=== PATIENT | male | born 1990 | race Caucasian/White ===

== ENCOUNTER 2024-09-25 11:57 | Emergency (ER) | payer OTHER, SELFPAY ==
--- OUTSIDE RECORDS SUMMARY | 2024-09-25 11:59 | XMS_ITS | Clinical Summary ---
Author Organization 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 Gender Identity Not on file Sexual Orientation Not on file Plan of Treatment Health Maintenance Due Date Last Done Comments Hepatitis C Virus (HCV) Screening 1991 Human Papillomavirus (HPV) Immunization (1 - Male 3-dose series) 09/22/2006 Hepatitis B Immunization (1 of 3 - 19+ 3-dose series) 09/22/2010 SARS-COV-2 Immunization ( - 2023- season) 2023 Influenza Immunization (#1) 2024 Respiratory Syncytial Virus (RSV) Immunization (Adult) (1 - 1-dose 75+ series) 09/22/2066 DTaP/Tdap/Td Immunization Discontinued 07/31/2018 TdaP Immunization Completed 07/31/2018 Meningococcal Immunization (ACWY) Aged Out No longer eligible based on patient's age to complete this topic Pneumococcal Immunization Combined Aged Out No longer eligible based on patient's age to complete this topic Rotavirus Immunization Aged Out No lo nger eligible based on patient's age to complete this topic
--- OUTSIDE RECORDS SUMMARY | 2024-09-25 11:59 | XMS_ITS | Clinical Summary ---
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 This disclosure is being madepursuant to the Care Everywhere program and may not contain all information available regarding this patient. 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 Gender Identity Not on file Sexual Orientation Not on file Last Filed Vital Signs Vital Sign Reading Time Taken Comments Blood Pressure 134/78 12/27/2012 5:48 AM CDT Pulse 98 12/27/2012 5:48 AM CDT Temperature 37.1 C (98.7 F) 12/27/2012 2:09 AM CDT Respiratory Rate 18 12/27/2012 5:48 AM CDT Oxygen Saturation 99% 12/27/2012 5:48 AM CDT Inhaled Oxygen Concentration - - Weight 81.6 kg (180 lb) 12/27/2012 2:09 AM CDT Height 182.9 cm (6') 12/27/2012 2:09 AM CDT Body Mass Index 24.41 12/27/2012 2:09 AM CDT Plan of Treatment Health Maintenance Due Date Last Done Comments HIV SCREENING 09/22/2006 HEPATITIS C SCREENING 09/18/2009 DTAP/TDAP/TD VACCINES (1 - Tdap) 09/22/2010 HEPATITIS B VACCINE (1 of 3 - 19+ 3-dose series) 09/22/2010 HPV VACCINE (1 - 3-dose SCDM series) 09/22/2018 COVID-19 VACCINE (1 - 2024-2 5 season) 2023 DEPRESSION SCREENING 02/27/2024 INFLUENZA VACCINE (#1) 2024 ZOSTER VACCINE (1 of 2) 09/22/2041 HIB VACCINE Aged Out No longer eligi ble based on patient's age to complete this topic MENINGOCOCCAL (Group B) VACC INE SHARED DECISION-MAKING Aged Out No longer eligibl e based on patient's age to complete this topic MENINGOCOCCAL GROUPS A/C/Y/W VACCINE Aged Out No longer eligible b ased on patient's age to complete this topic PNEUMOCOCCAL VACCINE Aged Out No long er eligible based on patient's age to complete this topic
--- OUTSIDE RECORDS SUMMARY | 2024-09-25 12:04 | XMS_ITS | Clinical Summary ---
Author Organization [facility] Address [address] [place] [id number] Care Team Providers Care Fur Blender Name Role Phone None, Provider MD Primary Care Provider Unavaila ble Allergies Active Allergy Reactions Criticality Noted Date Comments Amoxicillin Rash Low 08/25/2023 Medications fluticasone propionate (FLONASE) 50 MCG/ACT nasal sprayIndication s:Post-nasal drainage 1 spray by Each Nostril route daily. 09/03/2023 Active methylPREDNISol one, NIA, (MEDROL DOSEPAK) 4 MG tabletIndicatio ns:Bronchitis 6 TABLETS ON DAY ONE, 5 TABLETS DAY TWO, 4 TABLETS DAY THREE, 3 TABLETS DAY FOUR, 2 TABLETS DAY FIVE, AND 1 TABLET DAY SIX 1 each 09/03/2023 Active Active Problems No known active problems Immunizations Immunization Administration Dates Next Due Influenza Adult (Generic) 12/02/2021 Tdap (Boostrix) 07/31/2018 Family History Medical History Relation Comments None Father None Mother Relation Status Comments Father Mother Social History Tobacco Use Types Packs/Day Years Used Date Smoking Tobacco: Former Cigarettes Smokeless Tobacco: Never Tobacco Cessation:Counseling Given: Not Answered Alcohol Use Standard Drinks/Week Comments Yes 0 (1 standard drink = 0.6 oz pur e alcohol) PHQ-2 Answer Date Recorded Patient Health Questionnaire-2 Score 0 06/07/2022 Sex and Gender Information Value Date Recorded Sex Assigned at Not on file Legal Sex Male 5:38 PM CDT Gender Identity Not on file Sexual Orientation Not on file Last Filed Vital Signs Vital Sign Reading Time Taken Comments Blood Pressure 148/91 09/03/2023 1:48 PM CDT Pulse 81 09/03/2023 1:27 PM CDT Temperature 36.7 C (98 F) 09/03/2023 1:27 PM CDT Respiratory Rate 18 09/03/2023 1:27 PM CDT Oxygen Saturation 98% 09/03/2023 1:27 PM CDT Inhaled Oxygen Concentration - - Weight 89.2 kg (196 lb 9.6 oz) 09/03/2023 1:27 P M CDT Height 182.9 cm (6') 09/03/2023 1:27 PM CDT Body Mass Index 26.66 09/03/2023 1:27 PM CDT Plan of Treatment Health Maintenance Due Date Last Done Comments Annual Physical 09/22/1994 Hepatitis C 09/22/2009 Hepatitis B Vaccines (1 of 3 - 19+ 3-dose series) 09/22/2010 HPV Vaccines (1 - 3-dose SCD M series) 09/22/2018 COVID-19 Vaccine (3 - 2023-2 5 season) 2023 12/02/2021, 06/06/2020 PHQ-2 (Physician [place]) 02/27/2024 DTaP, Tdap and Td Vaccines ( 2 - Td or Tdap) 07/31/2028 07/31/2018 Meningococcal B Vaccine Aged Out No l onger eligible based on patient's age to complete this topic Meningococcal Vaccine Aged Out No macario alma eligible based on patient's age to complete this topic Pneumococcal Vaccine: Pediatrics (0 to 5 Years) and At-Risk Patients (6 to 49 Years) Aged Out No longer eligible b ased on patient's age to complete this topic RSV Immunizations Under 20 Months Aged Out No longer eligible b ased on patient's age to complete this topic Insurance [employer] Care Teams Fur Blender Relationship Specialty Start Date End Date None, Provider, PCP - General 07/29/18
[2024-09-25 12:07] VITALS: BP 157/97; PULSE 87; RESP 18; TEMP 36.6; O2SAT 100
--- NOTE | 2024-09-25 13:04 | ED_ITS ---
HPI - Extremity Problem General Chief complaint: Extremity Injury, Upper Stated complaint: RT Elbow Pain Time Seen by Provider: 09/25/24 13:04 Source: patient, RN notes reviewed and old records reviewed Mode of arrival: ambulatory Limitations: no limitations History of Present Illness HPI Narrative: 34-year-old male presents to the [facility] with right elbow pain and swelling since yesterday. Denies any injury. States 2 days ago was doing more stressful work on his elbow than he normally does. Swelling and tenderness noted to the posterior right elbow, olecranon area. Does have full range of motion. Related Data Home Medications ?Medication ?Instructions ?Recorded ?Confirmed ?Last Taken ?Type No Home Medications 09/25/24 09/25/24 Unknown History Allergies Allergy/AdvReac Type Severity Reaction Status Date / Time amoxicillin Allergy Mild Rash Verified 09/25/24 13:06 Review of Systems Review of Systems: All systems reviewed & are unremarkable except as noted in HPI and below Constitutional: Constitutional: Reports no additional constitutional complaints Musculoskeletal: Musculoskeletal: Reports as per HPI, Reports arthralgias, Reports joint swelling (Right elbow), Denies limited range of motion and Denies muscle weakness Integumentary/Breasts: Skin/Breast: Reports system reviewed and no additional complaints, except as docu PMFSH Comments At the time of my signature, I reviewed and agree with the nursing past medical, surgical, social, and family history. There is no relevant family history pertinent to the patient complaint. Exam Const: General: cooperative, healthy appearing, comfortable, no acute distress, well developed, alert and well nourished Nutritional Appearance: well nourished Orientation/consciousness: patient oriented x3 Limitations: no limitations HENMT: Head: normal to inspection Eyes: General: appearance normal, both eyes and all related structures Alignment and Position: alignment normal Neck: Neck: normal visual inspection, full ROM, no lymphadenopathy and no meningeal signs Chest: Chest palpation & inspection: normal inspection of the chest Resp: Effort & Inspection: normal respiratory effort and able to speak in complete sentences Cardio: Rate: regular rate Skin: General skin exam: normal color and no rashes or lesions noted Neuro: General: patient oriented x3, gait normal, moves all extremities and no meningeal signs Cognition (Neuro): normal cognition Speech: normal speech Gait exam (Neuro): Normal gait present Extrem: General: normal to inspection, full ROM, capillary refill normal and normal gait Right upper extremity: elbow/forearm tenderness, swelling of the olecranon, normal ROM, warmth of the olecranon bursa and distal pulses intact; no lacerations, no ecchymosis, no penetrating wound and no deformity, wrist normal to inspection and normal ROM and Extremity exam: right hand normal to inspection and normal capillary refill Psych: Appearance: grossly normal and well kempt Mental Status: mental status grossly normal Speech and movement: Normal speech and movement present and Clear speech present Affect: normal affect Attitude: cooperative Course Course Level of Care: Express Care Visit Vital Signs Vital signs: Vital Signs Temperature 97.9 F 09/25/24 12:07 Pulse Rate 87 09/25/24 12:07 Respiratory Rate 18 09/25/24 12:07 Blood Pressure 157/97 H 09/25/24 12:07 Pulse Oximetry 100 09/25/24 12:07 Oxygen Delivery Room Air 09/25/24 12:07 Temperature 97.9 F 09/25/24 12:07 Pulse Rate 87 09/25/24 12:07 Respiratory Rate 18 09/25/24 12:07 Blood Pressure 157/97 H 09/25/24 12:07 Pulse Oximetry 100 09/25/24 12:07 Oxygen Delivery Room Air 09/25/24 12:07 Reviewed MDM - Extremity (Nontraumatic) MDM Narrative Medical decision making narrative: Patient sitting in exam room. Patient is nontoxic, vitals stable. Patient presents with swelling posterior right elbow consistent with olecranon bursitis. Discussed doing an x-ray which is not needed due to no injury. Discussed treatment of the olecranon bursitis, referral to Ortho given Stressed the importance of following up with primary care provider for further evaluation if symptoms do not improve Patient is appropriate for outpatient treatment with close follow-up Discharge instructions reviewed with patient, as well as provided in writing per nursing staff. The instructions also include specific and strict return/GO TO THE ER as well as f/u information. All questions have been answered, and the patient deny any further questions with discharge and discharge plan. Some parts of this dictation were generated by voice recognition software and may contain typographical and/or grammatical inaccuracies. Differential Diagnosis Differential diagnosis: Likely gout, cellulitis and other (Bursitis) Critical Care Time Critical Care Time Critical Care Time: No Discharge Plan Discharge Clinical Impression: Olecranon bursitis of right elbow Patient Disposition: Home Condition: Stable Instructions: Antibiotic Form, Elbow Bursitis (ED) Additional Instructions: Rest, ice and elevate every 2-3 hours for 15-20 minutes while awake. Wear an Shane wrap or a pull-on compression sleeve Take the indomethacin as prescribed Follow-up with Ortho or primary care provider If you are having a hard time finding a physician please call our [facility] liaison at [phone]. For new or worsening symptoms go directly to the emergency room Patient Language: Faroese Prescriptions: New indomethacin 50 mg capsule 50 mg PO TID Qty: 20 0RF Rx Instructions: administer with food or milk No Action No Home Medications Follow-up/Referrals: PHYSICIAN,AIRBRUSH ARTIST [Primary Care Provider] - John Urrutia MD [Physician] - 1 Week (Right olecranon bursitis) Time of Disposition: 13:16
== END 2024-09-25 13:22 | disposition home or self-care (01) ==
PROVIDERS: Emergency Provider Nurse Practitioner
DX: M71.521 Other bursitis, not elsewhere classified, right elbow (principal)
CPT/HCPCS: 99203; G0463